=== PATIENT | female | born 1990 | race Caucasian/White ===

== ENCOUNTER 2018-01-29 08:45 | Emergency (ER) | payer MEDICAID ==
[~2018-01-29] VITALS: Ht 121.9 cm; Wt 60.4 kg
[~2018-01-29 08:45] MED LIST: ALBU8.5H8 INH; KETO10TA2 PO; LORA-269 PO; ONDA8TAB6 PO; TRAZ-143 PO
[2018-01-29 09:17] VITALS: BP 109/68
[2018-01-29] MEDS ORDERED: LIDOcaine 1.5% w/epinephrine 1:200,000 5ml ampul IJ ONE (09:50)
[2018-01-29] MEDS ORDERED: CEPH500C5 PO (10:10)
[2018-01-29] MEDS ORDERED: SULF1TAB49 PO (10:10)
== END 2018-01-29 10:31 | disposition home or self-care (01) ==
LOC: ER 08:46
DX: L02.31 Cutaneous abscess of buttock (principal); F11.10 Opioid abuse, uncomplicated; Z79.899 Other long term (current) drug therapy
CPT/HCPCS: 10060; 99283; A6449; J3490

== ENCOUNTER 2018-01-31 08:27 | Emergency (ER) | payer MEDICAID ==
[~2018-01-31] VITALS: Ht 167.6 cm; Wt 62.4 kg
[~2018-01-31 08:27] MED LIST changes: +CEPH500C5 PO; +SULF1TAB49 PO
[2018-01-31 08:41] VITALS: BP 101/60
[2018-01-31] MEDS ORDERED: bacitracin 15gm ointment TP ONE (09:20)
== END 2018-01-31 09:41 | disposition home or self-care (01) ==
LOC: ER 08:28
DX: Z48.01 Encounter for change or removal of surgical wound dressing (principal); F11.10 Opioid abuse, uncomplicated
CPT/HCPCS: 99282; A6255; A6257

== ENCOUNTER 2018-09-27 16:35 | Emergency (ER) | payer MEDICAID ==
[~2018-09-27] VITALS: Ht 162.6 cm; Wt 60.9 kg
[~2018-09-27 16:35] MED LIST changes: -SULF1TAB49 PO; -TRAZ-143 PO; +TRAZ-218 PO
[2018-09-27 16:41] VITALS: BP 121/78
[2018-09-27 17:33] LABS: CLARITY,URINE CLOUDY (Clear); COLOR,URINE YELLOW (Yellow); GLUCOSE, URINE 250 mg/dl (Neg); KETONES,URINE NEGATIVE (Neg); LEUKOCYTE ESTERASE ,URINE TRACE (Neg); NITRITES, URINE POSITIVE (Neg); OCCULT BLOOD,URINE SMALL (Neg); PH,URINE 6.5 (4.8-8.0); PROTEIN,URINE NEGATIVE (Neg); UA COLLECTION TYPE CLN CATCH MIDSTREAM; URINE HCG NEGATIVE (NEG); UROBILINOGEN,URINE 0.2 E.U/dL (0.2-1.0)
[2018-09-27 17:44] LABS: BACTERIA,URINE 3+ /HPF (Neg); MUCUS STRANDS FEW /LPF (Neg); SQUAMOUS EPITHELIAL CELL,UR FEW /LPF (FEW)
[2018-09-27 17:45] LABS: WBC,URINE 50-100 /HPF (0-4)
[2018-09-27 17:54] LABS: URINE AMPHETAMINE SCREEN NEGATIVE (Neg); URINE BARBITUATE SCREEN NEGATIVE (Neg); URINE BENZODIAZEPINES SCREEN NEGATIVE (Neg); URINE CANNABINOID SCREEN NEGATIVE (Neg); URINE COCAINE SCREEN NEGATIVE (Neg); URINE METHADONE SCREEN NEGATIVE (Neg); URINE OPIATE SCREEN NEGATIVE (Neg); URINE PHENCYCLIDINE SCREEN NEGATIVE (Neg)
[2018-09-27] MEDS ORDERED: CEPH-572 PO (17:55)
== END 2018-09-27 18:21 | disposition home or self-care (01) ==
LOC: ER 16:36
DX: N93.8 Other specified abnormal uterine and vaginal bleeding (principal); N39.0 Urinary tract infection, site not specified; F11.90 Opioid use, unspecified, uncomplicated; Z79.2 Long term (current) use of antibiotics; Z79.899 Other long term (current) drug therapy
CPT/HCPCS: 80305; 81001; 81025; 87077; 87088; 87186; 87210; 99283